=== PATIENT | male | born 1990 | race Caucasian/White ===

== ENCOUNTER 2019-01-28 22:22 | Emergency (ER) | payer SELFPAY ==
[~2019-01-28] VITALS: Ht 167.6 cm; Wt 95.7 kg
[2019-01-28 22:26] VITALS: BP 113/58; PULSE 101; RESP 16; Ht 167.6 cm; Wt 95.7 kg
[2019-01-28] MEDS ORDERED: KETOROLAC 60 MG INJ IM STA (22:42)
[2019-01-28] MEDS ORDERED: ONDANSETRON (ODT) 4 MG TAB ODT STA (22:42)
[2019-01-28] MEDS: KETOROLAC 30 MG INJ IM STA ×2 (22:59→23:04)
[2019-01-28] MEDS ORDERED: ACET/BUTAL/CAFF TAB PO ONE (23:30)
[2019-01-28] MEDS ORDERED: BUTA1CAP38 PO (23:33)
[2019-01-28] MEDS ORDERED: EXCED PO (23:34)
[2019-01-28] MEDS ORDERED: IBUP-1542 PO (23:34)
--- NOTE | 2019-01-28 23:35 | ERD ---
ER Documentation Chief Complaint Chief Complaint LÓPEZ since yesterday with sensitivity to light, sound, vomiting today HPI 28-year-old male presents to ED complaining of headache x4 days. He reports that the headache is sensitive to light, sound. He reports an episode of vomiting today as well and feels nauseous. He reports the headache as 10 out of 10 intensity and is located at the right hemisphere of his head. He denies any auras prior to his headache 4 days ago. He reports previous history of similar migraines in the past. He denies any radiation of his pain. He reports the pain as throbbing character. He denies any head injury or trauma. He states that he has tried Tylenol, Advil, Motrin with no relief of his migraine at this time. He denies any other past medical history ROS All systems reviewed and are negative except as per history of present illness. Medications Home Meds Active Scripts Acetaminophen/Aspirin/Caffeine* (Excedrin*) 1 Tab Tab, 1 TAB PO Q8, #20 TAB Prov:HENRIETTA EDUARDO PA-C 01/28/19 Ibuprofen* (Motrin*) 600 Mg Tab, 600 MG PO Q6H PRN for PAIN AND OR ELEVATED TEMP, #30 TAB Prov:HENRIETTA EDUARDO PA-C 01/28/19 Rulawqvtoz-Qptqzeeewaflb-Qbqfjdmc* (Fioricet*) 50-300-40 Mg Capsule, 1 CAP PO Q4H PRN for HEADACHE, #14 CAP Prov:HENRIETTA EDUARDO PA-C 01/28/19 Allergies Allergies: Coded Allergies: No Known Allergy (Unverified , 01/28/19) FmHx Family History: No diabetes Physical Exam Vitals Vital Signs Date Temp Pulse Resp B/P (MAP) Pulse Ox O2 O2 Flow FiO2 Time Delivery Rate 01/28/19 97.5 101 16 113/58 100 22:26 (76) Physical Exam Const: In acute pain Head: Atraumatic, Tenderness to right half of head Eyes: Normal Conjunctiva ENT: Normal External Ears, Nose and Mouth. Neck: Full range of motion. No meningismus. Resp: Clear to auscultation bilaterally Cardio: Regular rate and rhythm, no murmurs Abd: Soft, non tender, non distended. Normal bowel sounds Skin: No petechiae or rashes Back: No midline or flank tenderness Ext: No cyanosis, or edema Neur: Awake and alert. No focal deficints, CN 2-12 intact, no pronator drift, equal strength and sensation in all extrem Psych: Normal Mood and Affect Results 24 hrs Current Medications Medications Dose Sig/Ashlyn Start Time Status Last (Trade) Ordered Route PRN Stop Time Admin Dose Reason Admin Ketorolac 30 mg ONCE STAT 01/28/19 DC Tromethamine IM 22:42 (Toradol) 01/28/19 22:44 Ketorolac 60 mg ONCE STAT 01/28/19 DC 01/28/19 Tromethamine IM 22:42 22:59 (Toradol) 01/28/19 22:44 Ondansetron 4 mg ONCE STAT 01/28/19 DC 01/28/19 HCl (Zofran ODT 22:42 22:58 Odt) 01/28/19 22:44 1 tab ONCE ONCE 01/28/19 DC 01/28/19 Acetaminophen PO 23:30 23:35 / 01/28/19 23:31 Butalbital/ Caffeine (Fioricet) Procedures/MDM ED COURSE: The patient was stable throughout ED course. I kept the patient informed of laboratory and diagnostic imaging results throughout the ED course. MEDICATIONS GIVEN: Toradol, Fioricet Patient tolerated medication well with no adverse reactions. Patient reported improvement in pain. MEDICAL DECISION MAKING: Patient is a 28-year-old male complaining of a migraine x4 days. He reports previous history of similar migraines in the past. He has tried Tylenol, Advil, Motrin which usually help his symptoms but have not helped this time. On p hysical exam patient was in acute pain and showed tenderness to the right half of his head. At this time I do not think CT imaging is necessary due to no neurological deficits and previous history of similar events. Patient was given Toradol injection and Fioricet tablet which improved his symptoms in the ED. He was discharged with Excedrin, Motrin, Fioricet and told to go home and rest where he would be more comfortable. He was given strict return to ED precautions if symptoms persist or worsen. H&P and other data not c/w emergent process (eg. Subarachnoid hemorrhage, acute vertebral or carotid dissection, intracranial mass, epidural hematoma, subdural hematoma, dural venous sinus thrombosis, giant cell arteritis, pseudotumor cerebri, meningitis, mass, intracranial bleed). Vital signs were reviewed. Patient is afebrile. Patient was not hypoxic. Patient was hemodynamically stable. Patient was told to follow up with primary care for further care and management. PRESCRIPTION: Motrin, Excedrin, Fioricet DISCHARGE: At this time, patient is stable for discharge and outpatient management. I have instructed the patient to follow-up with his/her primary care physician in 1-2 days. I have discussed with the patient the possibility of needing to see a specialist for further workup and imaging studies if symptoms persist. I have instructed the patient to promptly return to the ER for any new or worsening symptoms including increased pain, fever, nausea, vomiting, weakness or LOC. The patient expressed understanding of and agreement with this plan. All questions were answered. Home care instructions were provided. Disclaimer: Inadvertent spelling and grammatical errors are likely due to EHR/dictation software use and do not reflect on the overall quality of patient care. Also, please note that the electronic time recorded on this note does not necessarily reflect the actual time of the patient encounter. Departure Diagnosis: Primary Impression: Migraine Migraine type: without aura Status migrainosus presence: without status migrainosus Intractability: intractable Qualified Codes: G43.019 - Migraine without aura, intractable, without status migrainosus Condition: Fair Patient Instructions: Migraine Headache: Stages and Treatment Referrals: [facility] YOU HAVE RECEIVED A MEDICAL SCREENING EXAM AND THE RESULTS INDICATE THAT YOU DO NOT HAVE A CONDITION THAT REQUIRES URGENT TREATMENT IN THE EMERGENCY DEPARTMENT. FURTHER EVALUATION AND TREATMENT OF YOUR CONDITION CAN WAIT UNTIL YOU ARE SEEN IN YOUR DOCTORS OFFICE WITHIN THE NEXT 1-2 DAYS. IT IS YOUR RESPONSIBILITY TO MAKE AN APPOINTMENT FOR FOLOW-UP CARE. IF YOU HAVE A PRIMARY DOCTOR --you should call your primary doctor and schedule an appointment IF YOU DO NOT HAVE A PRIMARY DOCTOR YOU CAN CALL OUR PHYSICIAN REFERRAL HOTLINE AT IF YOU CAN NOT AFFORD TO SEE A PHYSICIAN YOU CAN CHOSE FROM THE FOLLOWING [facility] [address] [facility]. [facility] [address] [facility]. [facility] [address] [facility] [address] [facility]. [facility] [address] [facility]. [facility] [address] [facility]. [facility] YOU HAVE RECEIVED A MEDICAL SCREENING EXAM AND THE RESULTS INDICATE THAT YOU DO NOT HAVE A CONDITION THAT REQUIRES URGENT TREATMENT IN THE EMERGENCY DEPARTMENT. FURTHER EVALUATION AND TREATMENT OF YOUR CONDITION CAN WAIT UNTIL YOU ARE SEEN IN YOUR DOCTORS OFFICE WITHIN THE NEXT 1-2 DAYS. IT IS YOUR RESPONSIBILITY TO MAKE AN APPOINTMENT FOR FOLOW-UP CARE. IF YOU HAVE A PRIMARY DOCTOR --you should call your primary doctor and schedule and appointment IF YOU DO NOT HAVE A PRIMARY DOCTOR YOU CAN CALL OUR PHYSICIAN REFERRAL HOTLINE AT . IF YOU CAN NOT AFFORD TO SEE A PHYSICIAN YOU CAN CHOSE FROM THE FOLLOWING [facility] INSTITUTIONS: [facility] [address] [place] [address] [facility] [address] [place] [address] [facility] [address] [place] [address] Additional Instructions: Llame al doctor MAANA y jaquelin addie ELDA PARA DENTRO DE 1-2 ADAMS.Dgale a la secretaria que nosotros le instruimos hacer esta elda.Avise o llame si carnes condicin se empeora antes de la elda. Regresa aqui si peor o no mejor. HENRIETTA EDUARDO PA-C Jan 28, 2019 23:35
== END 2019-01-28 23:53 | disposition home or self-care (01) ==
LOC: FTE 22:22
DX: G43.019 Migraine without aura, intractable, without status migrainosus (principal)
CPT/HCPCS: 96372; 99284; J1885

== ENCOUNTER 2019-01-29 09:08 | Emergency (ER) | payer SELFPAY ==
[~2019-01-29] VITALS: Ht 162.6 cm; Wt 100.0 kg
[~2019-01-29 09:08] MED LIST: BUTA1CAP38 PO; EXCED PO; IBUP-1542 PO
[2019-01-29 09:10] VITALS: Ht 162.6 cm; Wt 100.0 kg
[2019-01-29] MEDS ORDERED: PROCHLORPERAZINE 10 MG INJ IV STA (09:24)
[2019-01-29] MEDS ORDERED: DIPHENHYDRAMINE 50 MG INJ IV STA (09:24)
[2019-01-29] MEDS ORDERED: SOD CHLORIDE 0.9% 1,000 ML IV STA (09:24)
[2019-01-29] MEDS ORDERED: KETOROLAC 30 MG INJ IV STA (09:24)
--- NOTE | 2019-01-29 09:42 | ERD ---
ER Documentation Chief Complaint Chief Complaint pt is bib family with c/o headache since waking HPI Patient is a 28-year-old male who presents with headache. He was seen here for the same yesterday. Patient states that it is frontal and radiates backwards bilaterally. Is associated with nausea and vomiting and photosensitivity. No fever. No trauma. He was given prescription for multiple medications yesterday but states he never picked them up. ROS All systems reviewed and are negative except as per history of present illness. Medications Home Meds Active Scripts Acetaminophen/Aspirin/Caffeine* (Excedrin*) 1 Tab Tab, 1 TAB PO Q8, #20 TAB Prov:HENRIETTA EDUARDO PA-C 01/28/19 Ibuprofen* (Motrin*) 600 Mg Tab, 600 MG PO Q6H PRN for PAIN AND OR ELEVATED TEMP, #30 TAB Prov:HENRIETTA EDUARDO PA-C 01/28/19 Okzyqwfmcp-Pzuusfvjuprkh-Muswuapp* (Fioricet*) 50-300-40 Mg Capsule, 1 CAP PO Q4H PRN for HEADACHE, #14 CAP Prov:HENRIETTA EDUARDO PA-C 01/28/19 Allergies Allergies: Coded Allergies: No Known Allergy (Unverified , 01/28/19) PMhx/Soc Medical and Surgical Hx: pt denies Medical Hx, pt denies Surgical Hx Hx Alcohol Use: No Hx Substance Use: No Hx Tobacco Use: No FmHx Family History: No diabetes Physical Exam Vitals Vital Signs Date Temp Pulse Resp B/P (MAP) Pulse Ox O2 O2 Flow FiO2 Time Delivery Rate 01/29/19 98.3 74 18 132/76 98 09:10 (94) Physical Exam INITIAL VITAL SIGNS: Reviewed by me GENERAL: Awake, alert and oriented x 4, well appearing, nontoxic, speaking in full sentences. No acute distress HEAD: Atraumatic NECK: Supple. No masses. Full range of motion. No meningismus. No midline tenderness. EYES: EOMI. PERRL. EAR: No tenderness over the mastoids bilaterally. No exudates in the canals. TMs nonerythematous. NOSE: Normal nose. THROAT: No tonilar erythema or edema. No exudates. Uvula midline. No kissing tonsils. RESPIRATORY: Clear to auscultation bilaterally. Symmetric chest wall rise. No wheezing or rales. No accessory muscle use. CV: Regular rate and rhythm. No murmurs, rubs, or gallops. ABDOMEN: Soft, non-distended. Nontender. Negative [place]. Negative McBurneys point tenderness. No CVA tenderness bilaterally. No guarding. No rebound. Neuro: M/S: Alert and oriented Face: EOMI, face and pharynx with normal sensation and function Motor: Normal strength throughout Sensation: Normal sensation throughout Speech: Normal Cerebel: Normal coordination Normal gait Normal finger to nose Results 24 hrs Current Medications Medications Dose Sig/Ashlyn Start Time Status Last (Trade) Ordered Route PRN Stop Time Admin Dose Reason Admin Sodium 1,000 ml @ Q1H STAT 01/29/19 01/29/19 Chloride 1,000 mls/hr IV 09:24 09:39 01/29/19 10:23 10 mg ONCE STAT 01/29/19 DC 01/29/19 Prochlorperaz IV 09:24 09:40 ine 01/29/19 09:26 (Compazine Inj) Ketorolac 15 mg ONCE STAT 01/29/19 DC 01/29/19 Tromethamine IV 09:24 09:40 (Toradol) 01/29/19 09:26 12.5 mg ONCE STAT 01/29/19 DC 01/29/19 Diphenhydrami IV 09:24 09:40 ne HCl 01/29/19 09:26 (Benadryl) Procedures/MDM The differential diagnosis includes but is not limited to subdural hematoma, epidural hematoma, intracerebral hemorrhage, occult trauma, CVA, meningitis, encephalitis, hypertension, tension, migraine, cluster, cervical spine disease, and others. Patient has a history of migraines. He was seen here yesterday for the same. Given he is returning for same symptoms without much relief from yesterday's visit the CT scan was ordered. He was given IV fluids, Compazine, Benadryl, and Toradol. CT scan is negative. Instructed to potato picker medications were prescribed yesterday. Patient counseled regarding my diagnostic impression and care plan. Prior to discharge all questions answered. Pt agrees with treatment plan and understands strict return precautions. Pt is instructed to follow up with primary care provider within 24-48 hours. Precautionary instructions provided including instructions to return to the ER if not improving or for any worsening or changing symptoms or concerns. Departure Diagnosis: Primary Impression: Migraine Condition: Stable KRUSE,MELISA PA-C Jan 29, 2019 09:42
[2019-01-29 10:47] VITALS: BP 109/55; PULSE 70; RESP 18
== END 2019-01-29 10:48 | disposition home or self-care (01) ==
LOC: FTE 09:08
DX: G43.909 Migraine, unspecified, not intractable, without status migrainosus (principal)
CPT/HCPCS: 70450; 96374; 96375; 99285; J0780; J1200; J1885; J7030